=== PATIENT | male | born 1990 | race Hispanic/Latino ===

== ENCOUNTER 2025-06-19 09:19 | Emergency (ER) | payer OTHER ==
[2025-06-19] MEDS ORDERED: Sulfameth/Trimethoprim DS 800-160mg TAB ONE (09:40)
== END 2025-06-19 10:00 ==
LOC: EEVIPCON 09:19 → MADERS 09:19
DX: L03.012 Cellulitis of left finger (principal); F17.200 Nicotine dependence, unspecified, uncomplicated
CPT/HCPCS: 99283